=== PATIENT | male | born 1955 | race Caucasian/White ===

== ENCOUNTER → 2020-07-15 11:14 | Outpatient (BNVA) | payer MEDICARE, OTHER, SELFPAY | PROVIDERS: Visit Provider Emergency Medicine | DX: R10.9 Unspecified abdominal pain (principal) | CPT/HCPCS: 80053; 81000; 85025 ==

== ENCOUNTER 2020-07-18 11:45 | Outpatient (CLI) | payer MEDICARE, OTHER, SELFPAY ==
--- NOTE | 2020-07-18 13:30 | CT_ITS ---
WS: [id number] CT ABDOMEN PELVIS TECHNIQUE: Contrast-enhanced CT of the abdomen and pelvis with coronal and sagittal reformatted image s. CLINICAL INFORMATION: R10.9 - Unspecified abdominal pain COMPARISON: None. DLP: 2777.[address] scans at [facility] use at least one of these dose optimization techniques: automat ed exposure control; mA and/or kV adjustment per patient size (includes targeted exams where dose is matched to clinical indication); or iterative reconstruction. FINDINGS: Mild diffuse fatty infiltration of the liver. Normal gallbladder. Splenic granulomas. Fatty atrophy o f the pancreas. Normal GE junction. Lung bases are well aerated. Adrenal glands are normal. Normal re nal parenchymal enhancement. No hydronephrosis. A few peripelvic renal cysts. Normal caliber abdomina l aorta. No periaortic lymphadenopathy. No inguinal lymphadenopathy. Diverticulosis. No evidence of acute diverticulitis. No evidence of high-grade small or large bowel o bstruction. Tiny fat-containing umbilical hernia. No free fluid in the pelvis. IMPRESSION: 1. Mild diffuse fatty infiltration of the liver. 2. A few sigmoid diverticuli. No evidence of acute diverticulitis. 3. No evidence of high-grade small or large bowel obstruction. 4. Normal caliber abdominal aorta. 5. Tiny fat-containing umbilical hernia. 6. No other significant findings.
[2020-07-18] MEDS: iohexol 300 mg/mL 100 mL Btl IV (14:08)
== END 2020-07-18 11:46 | disposition home or self-care (01) ==
LOC: RADWPI 11:55
PROVIDERS: PCP Family Medicine; Visit Provider Emergency Medicine
DX: R10.9 Unspecified abdominal pain (principal); K42.9 Umbilical hernia without obstruction or gangrene; K57.30 Diverticulosis of large intestine without perforation or abscess without bleeding; K76.0 Fatty (change of) liver, not elsewhere classified
CPT/HCPCS: 74177; Q9967